=== PATIENT | male | born 1965 | race African-American/Black ===

== ENCOUNTER 2016-09-09 19:36 | Inpatient (IN) | payer OTHER ==
--- NOTE | 2016-09-09 20:37 | HP ---
[facility] Assess/Revision - Admission History Admitted to Rehab from: [facility] [place] Date of Admission to Rehab: 09/09/16 - Findings Detox History & Physical reviewed: Yes Concur with findings: Yes Comments/Additional Findings: transferred from detox to rehab admission as per protocol
[2016-09-09] MEDS ORDERED: MAGNESIUM HYDROX 2400MG/30ML ORAL SUSPENSION 30 ML CUP PO PRN (20:38)
[2016-09-09] MEDS ORDERED: MENTHOL/PHENOL 1 EACH UD MM PRN (20:38)
[2016-09-09] MEDS ORDERED: MAGNESIUM CITRATE 300 ML BOTTLE PO PRN (20:38)
[2016-09-09] MEDS ORDERED: NICOTINE POLACRILEX 2 MG GUM BUC PRN (20:38)
[2016-09-09] MEDS ORDERED: ACETAMINOPHEN 325 MG TABLET (FP) PO PRN (20:38)
[2016-09-09] MEDS ORDERED: P-EPHED 60MG/TRIPROLIDI 2.5MG TABLET PO PRN (20:38)
[2016-09-09] MEDS ORDERED: LOPERAMIDE HCL 2 MG CAPSULE PO PRN (20:38)
[2016-09-09] MEDS ORDERED: guaiFENesin/D-METHORPHAN HB 10 ML UNIT-DOSE CUPS PO PRN (20:38)
[2016-09-09] MEDS ORDERED: MAG HYDROX/AL HYDROX/SIMETH 30 ML UNIT-DOSE CUP PO PRN (20:38)
[2016-09-09] MEDS ORDERED: NICOTINE 14 MG/24 HOURS TOPICAL PATCH TD PRN (20:38)
[2016-09-09] MEDS ORDERED: NAPROXEN 375 MG TABLET (FP) PO PRN (20:40)
[2016-09-09] MEDS: diphenhydrAMINE HCL 50 MG CAPSULE PO PRN (21:43)
[2016-09-09] MEDS: MINERAL OIL/PETROLAT/WATER TOPICAL CREAM 113 GM JAR TP SCH (21:57)
[2016-09-09] MEDS: THIAMINE HCL 100 MG TABLET (FP) PO SCH (21:57)
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
[2016-09-10] MEDS: PRENATAL VITAMINS W/ FOLIC ACID TABLET (FP) PO SCH (10:26)
[2016-09-10] MEDS: HYDROCORTISONE 1% TOPICAL OINT 30 GM TUBE TP PRN (11:41)
[2016-09-10] MEDS: COLLOIDAL OATMEAL 1 BAR EACH TP PRN (11:43)
[2016-09-10] MEDS ORDERED: INFLUENZA VACCINE 45 MCG/0.5 ML (MDV 16-17) IM ONE (12:00)
[2016-09-10] MEDS ORDERED: PNEUMOCOCCAL 23 VACCINE 0.5 ML VIAL IM ONE (12:00)
[2016-09-10] MEDS ORDERED: PNEUMOC 13-VAL CONJ-DIP CRM/PF 0.5 ML DISP.SYRIN IM ONE (12:00)
[2016-09-10] MEDS: diphenhydrAMINE HCL 50 MG CAPSULE PO PRN (21:14)
[2016-09-10] MEDS: MINERAL OIL/PETROLAT/WATER TOPICAL CREAM 113 GM JAR TP SCH (21:14)
[2016-09-10] MEDS: THIAMINE HCL 100 MG TABLET (FP) PO SCH (21:14)
[2016-09-11] MEDS: PRENATAL VITAMINS W/ FOLIC ACID TABLET (FP) PO SCH (10:07)
[2016-09-11] MEDS: HYDROCORTISONE 1% TOPICAL OINT 30 GM TUBE TP PRN (21:33)
[2016-09-11] MEDS: MINERAL OIL/PETROLAT/WATER TOPICAL CREAM 113 GM JAR TP SCH (21:33)
[2016-09-11] MEDS: THIAMINE HCL 100 MG TABLET (FP) PO SCH (21:33)
[2016-09-11] MEDS: diphenhydrAMINE HCL 50 MG CAPSULE PO PRN (21:34)
[2016-09-12] MEDS: PRENATAL VITAMINS W/ FOLIC ACID TABLET (FP) PO SCH (10:14)
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
[2016-09-12] MEDS: THIAMINE HCL 100 MG TABLET (FP) PO SCH (21:16)
[2016-09-12] MEDS: MINERAL OIL/PETROLAT/WATER TOPICAL CREAM 113 GM JAR TP SCH (21:16)
[2016-09-12] MEDS: HYDROCORTISONE 1% TOPICAL OINT 30 GM TUBE TP PRN (21:17)
[2016-09-13] MEDS: SERTRALINE HCL 50 MG TABLET (FP) PO SCH (10:23)
[2016-09-13] MEDS: PRENATAL VITAMINS W/ FOLIC ACID TABLET (FP) PO SCH (10:23)
[2016-09-13] MEDS: THIAMINE HCL 100 MG TABLET (FP) PO SCH (21:26)
[2016-09-13] MEDS: diphenhydrAMINE HCL 50 MG CAPSULE PO PRN (21:26)
[2016-09-13] MEDS: MINERAL OIL/PETROLAT/WATER TOPICAL CREAM 113 GM JAR TP SCH (21:47)
[2016-09-13] MEDS: COLLOIDAL OATMEAL 1 BAR EACH TP PRN (21:58)
[2016-09-14] MEDS: diphenhydrAMINE HCL 50 MG CAPSULE PO PRN ×2 (02:26→21:21)
[2016-09-14] MEDS: PRENATAL VITAMINS W/ FOLIC ACID TABLET (FP) PO SCH (09:57)
[2016-09-14] MEDS: SERTRALINE HCL 50 MG TABLET (FP) PO SCH (09:57)
[2016-09-14] MEDS: MINERAL OIL/PETROLAT/WATER TOPICAL CREAM 113 GM JAR TP SCH (21:21)
[2016-09-14] MEDS: THIAMINE HCL 100 MG TABLET (FP) PO SCH (21:21)
[2016-09-14] MEDS: HYDROCORTISONE 1% TOPICAL OINT 30 GM TUBE TP PRN (21:24)
[2016-09-15] MEDS: diphenhydrAMINE HCL 50 MG CAPSULE PO PRN (00:08)
[2016-09-15] MEDS: SERTRALINE HCL 50 MG TABLET (FP) PO SCH (09:35)
[2016-09-15] MEDS: PRENATAL VITAMINS W/ FOLIC ACID TABLET (FP) PO SCH (09:35)
[2016-09-15] MEDS: THIAMINE HCL 100 MG TABLET (FP) PO SCH (21:28)
[2016-09-15] MEDS: hydrOXYzine PAMOATE 50 MG CAPSULE (FP) PO PRN (21:30)
[2016-09-15] MEDS: MINERAL OIL/PETROLAT/WATER TOPICAL CREAM 113 GM JAR TP SCH (21:35)
[2016-09-15] MEDS: HYDROCORTISONE 1% TOPICAL OINT 30 GM TUBE TP PRN (21:35)
[2016-09-16] MEDS: hydrOXYzine PAMOATE 50 MG CAPSULE (FP) PO PRN ×2 (01:26→21:32)
[2016-09-16] MEDS: PRENATAL VITAMINS W/ FOLIC ACID TABLET (FP) PO SCH (09:35)
[2016-09-16] MEDS: SERTRALINE HCL 50 MG TABLET (FP) PO SCH (09:35)
[2016-09-16] MEDS: MINERAL OIL/PETROLAT/WATER TOPICAL CREAM 113 GM JAR TP SCH (21:29)
[2016-09-16] MEDS: THIAMINE HCL 100 MG TABLET (FP) PO SCH (21:29)
[2016-09-16] MEDS: HYDROCORTISONE 1% TOPICAL OINT 30 GM TUBE TP PRN (21:32)
[2016-09-17] MEDS: COLLOIDAL OATMEAL 1 BAR EACH TP PRN (10:00)
[2016-09-17] MEDS: PRENATAL VITAMINS W/ FOLIC ACID TABLET (FP) PO SCH (10:01)
[2016-09-17] MEDS: SERTRALINE HCL 50 MG TABLET (FP) PO SCH (10:01)
[2016-09-17] MEDS: MINERAL OIL/PETROLAT/WATER TOPICAL CREAM 113 GM JAR TP SCH (21:06)
[2016-09-17] MEDS: THIAMINE HCL 100 MG TABLET (FP) PO SCH (21:06)
[2016-09-17] MEDS: HYDROCORTISONE 1% TOPICAL OINT 30 GM TUBE TP PRN (21:07)
[2016-09-17] MEDS: diphenhydrAMINE HCL 50 MG CAPSULE PO PRN (21:08)
[2016-09-18] MEDS: hydrOXYzine PAMOATE 50 MG CAPSULE (FP) PO PRN (02:10)
[2016-09-18] MEDS: SERTRALINE HCL 50 MG TABLET (FP) PO SCH (10:20)
[2016-09-18] MEDS: PRENATAL VITAMINS W/ FOLIC ACID TABLET (FP) PO SCH (10:20)
[2016-09-18] MEDS: THIAMINE HCL 100 MG TABLET (FP) PO SCH (21:11)
[2016-09-18] MEDS: MINERAL OIL/PETROLAT/WATER TOPICAL CREAM 113 GM JAR TP SCH (21:12)
[2016-09-18] MEDS: HYDROCORTISONE 1% TOPICAL OINT 30 GM TUBE TP PRN (21:12)
[2016-09-18] MEDS: diphenhydrAMINE HCL 50 MG CAPSULE PO PRN (21:14)
[2016-09-19] MEDS: PRENATAL VITAMINS W/ FOLIC ACID TABLET (FP) PO SCH (10:25)
[2016-09-19] MEDS: SERTRALINE HCL 50 MG TABLET (FP) PO SCH (10:25)
[2016-09-19] MEDS: diphenhydrAMINE HCL 50 MG CAPSULE PO PRN (21:14)
[2016-09-19] MEDS: THIAMINE HCL 100 MG TABLET (FP) PO SCH (21:14)
[2016-09-19] MEDS: MINERAL OIL/PETROLAT/WATER TOPICAL CREAM 113 GM JAR TP SCH (21:14)
[2016-09-19] MEDS: HYDROCORTISONE 1% TOPICAL OINT 30 GM TUBE TP PRN (21:16)
[2016-09-20] MEDS: PRENATAL VITAMINS W/ FOLIC ACID TABLET (FP) PO SCH (10:24)
[2016-09-20] MEDS: SERTRALINE HCL 50 MG TABLET (FP) PO SCH (10:24)
[2016-09-20] MEDS: diphenhydrAMINE HCL 50 MG CAPSULE PO PRN (21:44)
[2016-09-20] MEDS: THIAMINE HCL 100 MG TABLET (FP) PO SCH (21:44)
[2016-09-20] MEDS: MINERAL OIL/PETROLAT/WATER TOPICAL CREAM 113 GM JAR TP SCH (21:45)
[2016-09-21] MEDS: SERTRALINE HCL 50 MG TABLET (FP) PO SCH (10:42)
[2016-09-21] MEDS: PRENATAL VITAMINS W/ FOLIC ACID TABLET (FP) PO SCH (10:42)
[2016-09-21] MEDS: MINERAL OIL/PETROLAT/WATER TOPICAL CREAM 113 GM JAR TP SCH (21:24)
[2016-09-21] MEDS: diphenhydrAMINE HCL 50 MG CAPSULE PO PRN (21:25)
[2016-09-21] MEDS: THIAMINE HCL 100 MG TABLET (FP) PO SCH (21:25)
[2016-09-22] MEDS: PRENATAL VITAMINS W/ FOLIC ACID TABLET (FP) PO SCH (09:37)
[2016-09-22] MEDS: SERTRALINE HCL 50 MG TABLET (FP) PO SCH (09:37)
[2016-09-22] MEDS: diphenhydrAMINE HCL 50 MG CAPSULE PO PRN (21:47)
[2016-09-22] MEDS: THIAMINE HCL 100 MG TABLET (FP) PO SCH (21:47)
[2016-09-22] MEDS: MINERAL OIL/PETROLAT/WATER TOPICAL CREAM 113 GM JAR TP SCH (21:50)
[2016-09-22] MEDS: HYDROCORTISONE 1% TOPICAL OINT 30 GM TUBE TP PRN (21:50)
[2016-09-23] MEDS: diphenhydrAMINE HCL 50 MG CAPSULE PO PRN ×2 (01:02→21:15)
[2016-09-23] MEDS: PRENATAL VITAMINS W/ FOLIC ACID TABLET (FP) PO SCH (10:21)
[2016-09-23] MEDS: SERTRALINE HCL 50 MG TABLET (FP) PO SCH (10:21)
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
[2016-09-23] MEDS: THIAMINE HCL 100 MG TABLET (FP) PO SCH (21:12)
[2016-09-23] MEDS: QUEtiapine FUMARATE 25 MG TABLET (FP) PO SCH (21:12)
[2016-09-23] MEDS: MINERAL OIL/PETROLAT/WATER TOPICAL CREAM 113 GM JAR TP SCH (21:14)
[2016-09-24] MEDS: diphenhydrAMINE HCL 50 MG CAPSULE PO PRN (01:11)
[2016-09-24] MEDS: PRENATAL VITAMINS W/ FOLIC ACID TABLET (FP) PO SCH (09:50)
[2016-09-24] MEDS: SERTRALINE HCL 50 MG TABLET (FP) PO SCH (09:50)
[2016-09-24] MEDS: COLLOIDAL OATMEAL 1 BAR EACH TP PRN (15:09)
[2016-09-24] MEDS: QUEtiapine FUMARATE 25 MG TABLET (FP) PO SCH (21:26)
[2016-09-24] MEDS: THIAMINE HCL 100 MG TABLET (FP) PO SCH (21:26)
[2016-09-24] MEDS: MINERAL OIL/PETROLAT/WATER TOPICAL CREAM 113 GM JAR TP SCH (21:30)
[2016-09-25 07:21] VITALS: BP 121/80; PULSE 76; TEMP 97.7
--- NOTE | 2016-09-25 09:26 | PN ---
Psychiatric Progress Note Vital Signs: Vital Signs Period Temp Pulse Resp BP Sys/Martínez Pulse Ox Last 24 Hr 97.7 F 76 18-18 121/80 Date of Session: 09/25/16 Chief Complaint:: discharge visit HPI: Patient has addressed alcohol dependence comorbid MDD, PTSD ROS: osteoarthritis on right knee medically managed Current Medications: Active Medications Generic Name Dose Route Start Last Admin Trade Name Freq PRN Reason Stop Dose Admin Acetaminophen 650 mg 09/09/16 20:38 Tylenol - PO Q4H PRN FEVER OR PAIN Al Hydroxide/Mg Hydroxide 30 ml 09/09/16 20:38 Mylanta Oral Suspension - PO Q6H PRN DYSPEPSIA Colloidal Oatmeal 1 applic 09/09/16 20:41 09/24/16 15:09 Aveeno Soap - TP 1 bar DAILY PRN Administration HYGEINE Diphenhydramine HCl 50 mg 09/09/16 20:38 09/24/16 01:11 Benadryl - PO 50 mg HSMR1 PRN Administration FOR ITCHING Eucalyptus/Menthol/Phenol/Sorbitol 1 each 09/09/16 20:38 Cepastat Lozenge - MM Q4H PRN SORE THROAT Guaifenesin 10 ml 09/09/16 20:38 Robitussin Dm - PO Q6H PRN COUGH Hydrocortisone 1 applic 09/09/16 20:41 09/22/16 21:50 Hytone 1% Ointment - TP 1 applic QID PRN Administration DRY SKIN Hydroxyzine Pamoate 50 mg 09/09/16 20:38 09/18/16 02:10 Vistaril - PO 50 mg Q4H PRN Administration AGITATION Loperamide HCl 4 mg 09/09/16 20:38 Imodium - PO Q6H PRN DIARRHEA Magnesium Hydroxide 30 ml 09/09/16 20:38 Milk Of Magnesia - PO DAILY PRN CONSTIPATION Multi-Ingredient Lotion 1 applic 09/09/16 22:00 09/24/16 21:30 Eucerin (Small Jar) - TP 1 applic HS VANESSA Administration Naproxen 375 mg 09/09/16 20:40 Naprosyn - PO BID PRN BACK PAIN Nicotine 14 mg 09/09/16 20:38 Nicoderm Patch - TD DAILY PRN WITHDRAWAL(CONT SUBST) Nicotine Polacrilex 2 mg 09/09/16 20:38 Nicorette Gum - BUC Q2H PRN NICOTINE REPLACEMENT RX Multivit/Folic Acid/Iron 1 tab 09/10/16 10:00 09/24/16 09:50 Vitamins (Sjr) - PO 1 tab DAILY VANESSA Administration Pseudoephedrine/Triprolidine 1 combo 09/09/16 20:38 Actifed - PO TID PRN NASAL CONGESTION Quetiapine Fumarate 25 mg 09/23/16 22:00 09/24/16 21:26 Seroquel - PO 25 mg HS VANESSA Administration Sertraline HCl 50 mg 09/13/16 10:00 09/24/16 09:50 Zoloft - PO 50 mg DAILY VANESSA Administration Thiamine HCl 100 mg 09/09/16 22:00 09/24/16 21:26 Vitamin B1 - PO 100 mg HS VANESSA Administration Current Side Effect: No Lab tests ordered: No Lab tests reviewed: Yes Provider note:: Patient has completed today treatment and met his identified goals, will continue to address issues aat [place] outpatient treatment program.He gained insights into his addiction and motivated to contiue maintain abstinence. Patient understands the importance of changing attitude for the utilization of supports avilable to prevent relapses. Medications well tolerated , scripts provded for 30 days , patient is stable for discharge. Total face to face time:: 30 Mental Status Exam - Mental Status Exam Alert and Oriented to: Time, Place Cognitive Function: Good Patient Appearance: Well Groomed Mood: Hopeful Affect: Appropriate, Mood Congruent Patient Behavior: Appropriate, Cooperative Speech Pattern: Clear, Appropriate Voice Loudness: Normal Thought Process: Intact, Goal Oriented Thought Disorder: Not Present Hallucinations: Denies Suicidal Ideation: Denies Homicidal Ideation: Denies Insight/Judgement: Fair Sleep: Fair Appetite: Fair Muscle strength/Tone: Normal Gait/Station: Normal Psychiatric Treatment Plan - Problem List (1) MDD (major depressive disorder), single episode, in full remission Current Visit: No (2) Weight loss Current Visit: No (3) Alcohol dependence Current Visit: Yes (4) PTSD (post-traumatic stress disorder) Current Visit: Yes
[2016-09-25] MEDS: PRENATAL VITAMINS W/ FOLIC ACID TABLET (FP) PO SCH (09:58)
[2016-09-25] MEDS: SERTRALINE HCL 50 MG TABLET (FP) PO SCH (09:58)
== END 2016-09-25 10:34 | disposition home or self-care (01) | DRG 772 ==
LOC: YASAS 19:36 → Y5N 19:38
PROVIDERS: ADMIT Psychiatry & Neurology Psychiatry; ATTEND Psychiatry & Neurology Psychiatry
PROC: HZ42ZZZ Group Counseling for Substance Abuse Treatment, Cognitive-Behavioral (ICD-10-PCS; principal; 2016-09-09)
DX: F10.20 Alcohol dependence, uncomplicated (principal); F33.9 Major depressive disorder, recurrent, unspecified; F43.10 Post-traumatic stress disorder, unspecified; M17.11 Unilateral primary osteoarthritis, right knee; Z87.898 Personal history of other specified conditions
CPT/HCPCS: 90732; G0009

== ENCOUNTER 2017-02-06 10:33 | Inpatient (IN) | payer OTHER ==
[2017-02-06 12:50] VITALS: BMI 23.0
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
[2017-02-06] MEDS ORDERED: hydrOXYzine PAMOATE 50 MG CAPSULE (FP) PO PRN (15:24)
[2017-02-06] MEDS ORDERED: ACETAMINOPHEN 325 MG TABLET (FP) PO PRN (15:24)
[2017-02-06] MEDS ORDERED: IBUPROFEN 400 MG TABLET (FP) PO PRN (15:24)
[2017-02-06] MEDS ORDERED: LOPERAMIDE HCL 2 MG CAPSULE PO PRN (15:24)
[2017-02-06] MEDS ORDERED: MENTHOL/PHENOL 1 EACH UD MM PRN (15:24)
[2017-02-06] MEDS ORDERED: MAGNESIUM CITRATE 300 ML BOTTLE PO PRN (15:24)
[2017-02-06] MEDS ORDERED: P-EPHED 60MG/TRIPROLIDI 2.5MG TABLET PO PRN (15:24)
[2017-02-06] MEDS ORDERED: chlordiazePOXIDE HCL 25 MG CAPSULE PO PRN (15:24)
[2017-02-06] MEDS ORDERED: guaiFENesin/D-METHORPHAN HB 10 ML UNIT-DOSE CUPS PO PRN (15:24)
[2017-02-06] MEDS ORDERED: MAG HYDROX/AL HYDROX/SIMETH 30 ML UNIT-DOSE CUP PO PRN (15:24)
[2017-02-06] MEDS ORDERED: MAGNESIUM HYDROX 2400MG/30ML ORAL SUSPENSION 30 ML CUP PO PRN (15:24)
[2017-02-06] MEDS ORDERED: chlordiazePOXIDE HCL 25 MG CAPSULE PO ONE (15:54)
[2017-02-06] MEDS: chlordiazePOXIDE HCL 25 MG CAPSULE PO SCH ×2 (16:41→22:03)
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
[2017-02-06 21:34] LABS: URINE APPEARANCE Clear; URINE BILIRUBIN Negative (NEGATIVE); URINE BLOOD Trace-intact (NEGATIVE); URINE GLUCOSE (UA) Trace (NEGATIVE); URINE KETONE Negative (NEGATIVE); URINE LEUK ESTERASE Negative (NEGATIVE); URINE NITRITE Negative (NEGATIVE); URINE PROTEIN Negative (NEGATIVE); URINE UROBILINOGEN 0.2 E.U/dl (0.2-1.0)
[2017-02-06 21:35] LABS: URINE COLOR YELLOW
[2017-02-06] MEDS: THIAMINE HCL 100 MG TABLET (FP) PO SCH (22:03)
[2017-02-06] MEDS: QUEtiapine FUMARATE 100 MG TABLET (FP) PO SCH (22:05)
[2017-02-06] MEDS: diphenhydrAMINE HCL 50 MG CAPSULE PO PRN (22:05)
[2017-02-07] MEDS: chlordiazePOXIDE HCL 25 MG CAPSULE PO SCH ×4 (05:40→22:07)
--- NOTE | 2017-02-07 10:19 | PN ---
S CIWA - CIWA Score Nausea/Vomitin Muscle Tremors: 3 Anxiety: 3 Agitation: 2 Paroxysmal Sweats: 2 Orientation: 0-Oriented Tacttile Disturbances: 1-Very Mild Itch/Numbness Auditory Disturbances: 0-None Visual Disturbances: 1-Very Mild Sensitivity Headache: 2-Mild CIWA-Ar Total Score: 16 BHS Progress Note (SOAP) Subjective: fatigue, shakes, sweats and abdominal discomfort Objective: 02/07/17 10:16 Vital Signs - 8 hr 02/07/17 02/07/17 06:19 10:16 Temperature 97.1 F L 97.7 F Pulse Rate 91 H 90 Respiratory 18 18 Rate Blood Pressure 127/83 116/84 Laboratory Last Values Urine Color Yellow 02/06/17 19:35 Urine Appearance Clear 02/06/17 19:35 Urine pH 5.0 (4.5-8) 02/06/17 19:35 Ur Specific [place] <= 1.005 (1.005-1.025) 02/06/17 19:35 Urine Protein Negative (NEGATIVE) 02/06/17 19:35 Urine Glucose (UA) Trace (NEGATIVE) 02/06/17 19:35 Urine Ketones Negative (NEGATIVE) 02/06/17 19:35 Urine Blood Trace-intact (NEGATIVE) 02/06/17 19:35 Urine Nitrite Negative (NEGATIVE) 02/06/17 19:35 Urine Bilirubin Negative (NEGATIVE) 02/06/17 19:35 Urine Urobilinogen 0.2 e.u/dl (0.2-1.0) 02/06/17 19:35 Ur Leukocyte Esterase Negative (NEGATIVE) 02/06/17 19:35 labs pending Assessment: 02/07/17 10:17 withkerry sx Plan: continue detox
[2017-02-07] MEDS: PRENATAL VITAMINS W/ FOLIC ACID TABLET (FP) PO SCH (10:22)
[2017-02-07 10:39] LABS: MCH 31.7 pg (25.7-33.7); MCHC 32.9 g/dl (32.0-35.9); MEAN CELL VOLUME 96.4 fl (80-96); MEAN PLT VOLUME 7.9 fl (7.5-11.1); PLATELET COUNT 268 K/MM3 (134-434); RDW 13.9 % (11.9-15.9); WHITE BLOOD COUNT 9.5 K/mm3 (4.0-10.0)
[2017-02-07 11:20] LABS: ALBUMIN 4.1 g/dl (3.4-5.0); ALK PHOS 82 U/L (45-117); ANION GAP 11 (8-16); BILIRUBIN,TOTAL 0.3 mg/dL (0.2-1.0); CALCIUM 9.6 mg/dL (8.5-10.1); CO2 28 mmol/L (21-32); CREATININE 0.9 mg/dL (0.7-1.3); GLUCOSE,RANDOM 123 mg/dL (74-106); SGOT/AST 42 U/L (15-37); SGPT/ALT 27 U/L (12-78); TOT PROT 8.7 g/dl (6.4-8.2)
[2017-02-07] MEDS: QUEtiapine FUMARATE 100 MG TABLET (FP) PO SCH (22:07)
[2017-02-07] MEDS: THIAMINE HCL 100 MG TABLET (FP) PO SCH (22:07)
[2017-02-07] MEDS: HYDROCORTISONE 1% TOPICAL OINT 30 GM TUBE TP PRN (22:08)
[2017-02-07] MEDS: diphenhydrAMINE HCL 50 MG CAPSULE PO PRN (22:09)
[2017-02-08] MEDS: chlordiazePOXIDE HCL 25 MG CAPSULE PO SCH ×2 (05:47→10:17)
[2017-02-08] MEDS ORDERED: COLLOIDAL OATMEAL 1 BAR EACH TP PRN (09:31)
[2017-02-08] MEDS: PRENATAL VITAMINS W/ FOLIC ACID TABLET (FP) PO SCH (10:17)
--- NOTE | 2017-02-08 12:52 | PN ---
S CIWA - CIWA Score Nausea/Vomitin Muscle Tremors: 4-Moderate,w/Arms Extend Anxiety: 3 Agitation: 3 Paroxysmal Sweats: No Perspiration Orientation: 0-Oriented Tacttile Disturbances: 1-Very Mild Itch/Numbness Auditory Disturbances: 0-None Visual Disturbances: 0-None Headache: 2-Mild CIWA-Ar Total Score: 16 S Progress Note (SOAP) Subjective: Anxious, nausea, sweating, interrupted sleep Objective: 02/08/17 12:51 Last Vital Signs Temp Pulse Resp BP Pulse Ox 98.1 F 73 18 113/77 02/08/17 10:09 02/08/17 10:09 02/08/17 10:09 02/08/17 10:09 Laboratory Tests 02/06/17 02/07/17 02/07/17 19:35 06:00 06:00 WBC 9.5 RBC 4.39 Hgb 13.9 Hct 42.3 MCV 96.4 H MCHC 32.9 RDW 13.9 Plt Count 268 MPV 7.9 Sodium 140 Potassium 4.4 Chloride 101 Carbon Dioxide 28 Anion Gap 11 BUN 6 L D Creatinine 0.9 Creat Clearance w eGFR > 60 Random Glucose 123 H Calcium 9.6 Total Bilirubin 0.3 D AST 42 H ALT 27 Alkaline Phosphatase 82 D Total Protein 8.7 H D Albumin 4.1 Urine Color Yellow Urine Appearance Clear Urine pH 5.0 Ur Specific [place] <= 1.005 Urine Protein Negative Urine Glucose (UA) Trace Urine Ketones Negative Urine Blood Trace-intact Urine Nitrite Negative Urine Bilirubin Negative Urine Urobilinogen 0.2 e.u/dl Ur Leukocyte Esterase Negative RPR Titer 02/07/17 06:00 WBC RBC Hgb Hct MCV MCHC RDW Plt Count MPV Sodium Potassium Chloride Carbon Dioxide Anion Gap BUN Creatinine Creat Clearance w eGFR Random Glucose Calcium Total Bilirubin AST ALT Alkaline Phosphatase Total Protein Albumin Urine Color Urine Appearance Urine pH Ur Specific [place] Urine Protein Urine Glucose (UA) Urine Ketones Urine Blood Urine Nitrite Urine Bilirubin Urine Urobilinogen Ur Leukocyte Esterase RPR Titer Nonreactive Labs noted Assessment: 02/08/17 12:51 Withdrawal symptoms Plan: Continue detox
[2017-02-08] MEDS: chlordiazePOXIDE 5 MG CAPSULE PO SCH ×2 (17:19→22:10)
[2017-02-08] MEDS: THIAMINE HCL 100 MG TABLET (FP) PO SCH (22:10)
[2017-02-08] MEDS: QUEtiapine FUMARATE 100 MG TABLET (FP) PO SCH (22:10)
[2017-02-08] MEDS: HYDROCORTISONE 1% TOPICAL OINT 30 GM TUBE TP PRN (22:13)
--- NOTE | 2017-02-08 23:27 | EKG ---
Test Reason : Blood Pressure : / mmHG Vent. Rate : 083 BPM Atrial Rate : 083 BPM P-R Int : 144 ms QRS Dur : 080 ms QT Int : 372 ms P-R-T Axes : 104 125 122 degrees QTc Int : 437 ms SUSPECT ARM LEAD REVERSAL, INTERPRETATION ASSUMES NO REVERSAL NORMAL SINUS RHYTHM LATERAL INFARCT , AGE UNDETERMINED ABNORMAL ECG NO PREVIOUS ECGS AVAILABLE Confirmed by PAULINA CORREA MD ([id number]) on 02/08/2017 11:27:10 PM Referred By: Confirmed By:PAULINA CORREA MD
[2017-02-09] MEDS: chlordiazePOXIDE 5 MG CAPSULE PO SCH ×2 (05:11→10:05)
[2017-02-09] MEDS: PRENATAL VITAMINS W/ FOLIC ACID TABLET (FP) PO SCH (10:05)
--- NOTE | 2017-02-09 12:38 | PN ---
[facility] Progress Note (SOAP) Subjective: Sweating, chills, anxious Objective: 02/09/17 12:38 Last Vital Signs Temp Pulse Resp BP Pulse Ox 98.3 F 84 18 113/76 02/09/17 09:10 02/09/17 09:10 02/09/17 09:10 02/09/17 09:10 Laboratory Tests 02/06/17 02/07/17 02/07/17 19:35 06:00 06:00 WBC 9.5 RBC 4.39 Hgb 13.9 Hct 42.3 MCV 96.4 H MCHC 32.9 RDW 13.9 Plt Count 268 MPV 7.9 Sodium 140 Potassium 4.4 Chloride 101 Carbon Dioxide 28 Anion Gap 11 BUN 6 L D Creatinine 0.9 Creat Clearance w eGFR > 60 Random Glucose 123 H Calcium 9.6 Total Bilirubin 0.3 D AST 42 H ALT 27 Alkaline Phosphatase 82 D Total Protein 8.7 H D Albumin 4.1 Urine Color Yellow Urine Appearance Clear Urine pH 5.0 Ur Specific [place] <= 1.005 Urine Protein Negative Urine Glucose (UA) Trace Urine Ketones Negative Urine Blood Trace-intact Urine Nitrite Negative Urine Bilirubin Negative Urine Urobilinogen 0.2 e.u/dl Ur Leukocyte Esterase Negative RPR Titer 02/07/17 06:00 WBC RBC Hgb Hct MCV MCHC RDW Plt Count MPV Sodium Potassium Chloride Carbon Dioxide Anion Gap BUN Creatinine Creat Clearance w eGFR Random Glucose Calcium Total Bilirubin AST ALT Alkaline Phosphatase Total Protein Albumin Urine Color Urine Appearance Urine pH Ur Specific [place] Urine Protein Urine Glucose (UA) Urine Ketones Urine Blood Urine Nitrite Urine Bilirubin Urine Urobilinogen Ur Leukocyte Esterase RPR Titer Nonreactive Labs noted Assessment: 02/09/17 12:38 Withdrawal symptoms Plan: Continue detox
[2017-02-09] MEDS: chlordiazePOXIDE HCL 10 MG CAPSULE PO SCH ×2 (17:17→22:01)
[2017-02-09] MEDS: QUEtiapine FUMARATE 100 MG TABLET (FP) PO SCH (22:01)
[2017-02-09] MEDS: THIAMINE HCL 100 MG TABLET (FP) PO SCH (22:01)
[2017-02-10] MEDS: chlordiazePOXIDE HCL 10 MG CAPSULE PO SCH (05:29)
[2017-02-10 06:12] VITALS: BP 107/69; PULSE 76; TEMP 97.2
--- NOTE | 2017-02-10 08:43 | DS ---
[facility] Detox Discharge Summary Admission Date: 02/06/17 Discharge Date: 02/10/17 - History Present History: Alcohol Dependence Pertinent Past History: Insomnia - Physical Exam Results Vital Signs: Vital Signs Temperature 97.2 F L 02/10/17 06:12 Pulse Rate 76 02/10/17 06:12 Respiratory Rate 16 02/10/17 06:12 Blood Pressure 107/69 02/10/17 06:12 O2 Sat by Pulse Oximetry (%) Pertinent Admission Physical Exam Findings: Withdrawal Sx. Laboratory Last Values WBC 9.5 K/mm3 (4.0-10.0) 02/07/17 06:00 RBC 4.39 M/mm3 (4.00-5.60) 02/07/17 06:00 Hgb 13.9 GM/dL (11.7-16.9) 02/07/17 06:00 Hct 42.3 % (35.4-49) 02/07/17 06:00 MCV 96.4 fl (80-96) H 02/07/17 06:00 MCHC 32.9 g/dl (32.0-35.9) 02/07/17 06:00 RDW 13.9 % (11.9-15.9) 02/07/17 06:00 Plt Count 268 K/MM3 (134-434) 02/07/17 06:00 MPV 7.9 fl (7.5-11.1) 02/07/17 06:00 Sodium 140 mmol/L (136-145) 02/07/17 06:00 Potassium 4.4 mmol/L (3.5-5.1) 02/07/17 06:00 Chloride 101 mmol/L (98-107) 02/07/17 06:00 Carbon Dioxide 28 mmol/L (21-32) 02/07/17 06:00 Anion Gap 11 (8-16) 02/07/17 06:00 BUN 6 mg/dL (7-18) L D 02/07/17 06:00 Creatinine 0.9 mg/dL (0.7-1.3) 02/07/17 06:00 Creat Clearance w eGFR > 60 (>60) 02/07/17 06:00 Random Glucose 123 mg/dL (74-106) H 02/07/17 06:00 Calcium 9.6 mg/dL (8.5-10.1) 02/07/17 06:00 Total Bilirubin 0.3 mg/dL (0.2-1.0) D 02/07/17 06:00 AST 42 U/L (15-37) H 02/07/17 06:00 ALT 27 U/L (12-78) 02/07/17 06:00 Alkaline Phosphatase 82 U/L (45-117) D 02/07/17 06:00 Total Protein 8.7 g/dl (6.4-8.2) H D 02/07/17 06:00 Albumin 4.1 g/dl (3.4-5.0) 02/07/17 06:00 Urine Color Yellow 02/06/17 19:35 Urine Appearance Clear 02/06/17 19:35 Urine pH 5.0 (4.5-8) 02/06/17 19:35 Ur Specific [place] <= 1.005 (1.005-1.025) 02/06/17 19:35 Urine Protein Negative (NEGATIVE) 02/06/17 19:35 Urine Glucose (UA) Trace (NEGATIVE) 02/06/17 19:35 Urine Ketones Negative (NEGATIVE) 02/06/17 19:35 Urine Blood Trace-intact (NEGATIVE) 02/06/17 19:35 Urine Nitrite Negative (NEGATIVE) 02/06/17 19:35 Urine Bilirubin Negative (NEGATIVE) 02/06/17 19:35 Urine Urobilinogen 0.2 e.u/dl (0.2-1.0) 02/06/17 19:35 Ur Leukocyte Esterase Negative (NEGATIVE) 02/06/17 19:35 RPR Titer Nonreactive (NONREACTIVE) 02/07/17 06:00 labs noted - Treatment Hospital Course: Detox Protocol Followed, Detoxed Safely, Responded well, Discharged Condition Good, Rehab Referral Accepted Patient has Accepted a Rehab Referral to: [facility] rehab - Medication Discharge Medications: Ambulatory Orders Quetiapine Fumarate [Seroquel] 100 mg PO HS #30 tablet 02/06/17 - Diagnosis (1) Alcohol dependence with uncomplicated withdrawal Current Visit: Yes Status: Acute (2) Alcohol-induced mood disorder Current Visit: Yes Status: Acute (3) Insomnia Current Visit: Yes Status: Acute Qualifiers: Insomnia type: alcohol-induced Qualified Code(s): F10.982 - Alcohol use, unspecified with alcohol-induced sleep disorder - AMA Did Patient Leave Against Medical Advice: No
[2017-02-10] MEDS: PRENATAL VITAMINS W/ FOLIC ACID TABLET (FP) PO SCH (09:31)
== END 2017-02-10 09:38 | disposition home or self-care (01) | DRG 775 ==
LOC: YASAS 10:33 → Y3N 15:01
PROVIDERS: ADMIT Internal Medicine; ATTEND Internal Medicine
PROC: HZ2ZZZZ Detoxification Services for Substance Abuse Treatment (ICD-10-PCS; principal; 2017-02-06)
DX: F10.230 Alcohol dependence with withdrawal, uncomplicated (principal); F10.24 Alcohol dependence with alcohol-induced mood disorder; F10.282 Alcohol dependence with alcohol-induced sleep disorder; Z87.438 Personal history of other diseases of male genital organs; Z91.5 Personal history of self-harm
CPT/HCPCS: 36415; 80053; 81003; 85027; 86593; 93005; 93010